=== PATIENT | female | born 1975 | race Caucasian/White ===

== ENCOUNTER 2019-06-14 14:18 | Outpatient (RCR) | payer SELFPAY ==
--- NOTE | 2019-06-14 19:32 | ONC CON_ITS ---
Dr. Villalobos New Patient Note Patient: Carolyne Cole Unit #: [id number]: 1975 Dicatated By: Juan Manuel Villalobos M.D.Date of Visit: Jun 14, 2019 Onc MED New Patient/Consult Referring Physician: Laz Brown Chief Complaint: Left upper extremity deep vein thrombosis. History of Present Illness: This is a 46 year-old woman with an unprovoked deep vein thrombosis of the left arm. She has a known history of sarcoidosis, which currently is an active. On she began having pain and swelling in her left arm. Initially she thought she may have just slept on it wrong. However, the symptoms worsened. She was seen in the emergency room on 05/10/2019. Venous Doppler of the left arm showed deep vein thrombosis in the left brachial veins. All other veins appeared free of thrombus. She started anticoagulation with apixaban, 10 mg twice daily for 7 days followed by 5 mg twice daily. Her symptoms initially improved, but on 05/20/2019 she returned to the emergency room with recurrence of pain in the upper left arm. Repeat venous Doppler showed no evidence for deep vein thrombosis. She was referred here for thrombophilia evaluation. In the meantime, she had contacted us to report multiple side effects with the apixaban including severe nausea and headaches. She reported having a 14 pound weight loss. With that information, her anticoagulation was transitioned to a therapeutic dosage of Lovenox. She is seen now for her scheduled visit. She has been feeling much better since she has been off the apixaban. She still has some limitation in her activity due to the left arm pain, but her energy is better. Her appetite also has improved. She has not had fever or night sweats. She has just occasional hot flashes. She does not complain of shortness of breath or chest pain. Her GI symptoms also have improved. She currently has no complaints. She was treated for urinary tract infection about a month ago. She says she has terrible pain in her knees, but that is chronic. She has had some numbness recently in her left arm. She has no other focal neurologic symptoms. She has no prior history of thromboembolism. She has no history of injury to her left arm. She has not been on hormone replacement therapy, and she is a non-smoker. There is a significant family history of thromboembolism with her father having with pulmonary emboli and a younger sister having had a lower extremity deep vein thrombosis. Past Medical History: Her medical history includes degenerative arthritis, vitamin D deficiency, and sarcoidosis. Past Surgical History: Her surgical/procedural history includes skin cancer excision x 2, cholecystectomy in 2011, right oophorectomy in 2011, appendectomy and left oophorectomy in 2009, partial hysterectomy in 2002, arthroscopic right knee surgery in 1998, and tonsillectomy in 1994. Medications: Lovenox 100 mg (of 300 mg/3mL) Injection b.i.d., Stool Softener 1 Tablet (of 100 mg) Oral PRN, Vitamin D 1 Tablet (of 63751 mcg) Oral q 7 days Allergies: all pain medications Social History: Ms. Cole is . 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 She is a non-smoker. She does not drink alcohol. Family History: Father at age 74 with pulmonary embolism. Mother is still living at age 75. She is being followed for a low-grade neuroendocrine lung tumor. She also has had strokes in association with atrial fibrillation. A sister had a blood clot in her leg in association with a traumatic fracture. Review Of Symptoms: Constitutional - Her energy is getting better. She is doing most activities, but the use of her left arm is somewhat limited, due to the blood clot. Her appetite is good and her weight is down about 14 pounds since being on the Eliquis. No fever, chills or night sweats. She has occasional hot flashes. ECOG score is 1, Eyes - No change in vision, ENMT - No hearing loss or tinnitus. No sinus congestion/drainage. No mouth sores. No sore throat or difficulty swallowing, Hematologic/Lymphatic - She is on anticoagulation for the blood clot. She had bruising in her left arm on Friday, Respiratory - No shortness of breath. No cough. No pleuritic pain or hemoptysis, Cardiovascular - No angina pain. No palpitations, Gastrointestinal - She was having nausea on Eliquis. No heartburn or acid reflux. She uses stool softener to regulate her bowels. No blood in the stool or black stools, Genitourinary (F) - No dysuria or hematuria. No urinary frequency. No urgency or incontinence, Musculoskeletal - She has pain in her left arm. She has chronic pain in her knees, Integumentary - She has had 2 skin cancers excised, and she has 2 remaining lesions, Neurologic - She had headaches while on Eliquis. She had an episode of numbness and tingling in her left arm/hand last week, Psychiatric - No anxiety or depression. She does not sleep well at night. Vital Signs: Performed on Jun 14, 2019 14:54: 4, 39.82 (HIGH), 2.08 sq.m, 64.00 in, 99 %, 76 /min, 18 /min, 125/82 mm(hg), 98.4 F, and 232.0 lbs (HIGH). Physical Examination: Constitutional - She appears to be in good general health, Eyes - Sclerae nonicteric. Conjunctivae clear, ENMT - No lesions noted in the oral cavity, Neck - No mass or thyromegaly, Hematologic/Lymphatic - No cervical, clavicular, or axillary adenopathy, Respiratory - Lungs are clear with good air movement bilaterally, Cardiovascular - Heart rhythm is regular. There is no murmur, gallop, or rub noted, Abdomen - Soft and non-tender. Liver and spleen are not enlarged. There is no abdominal mass or ascites noted and there is no inguinal adenopathy, Back/Spine - No spine or CVA tenderness noted, Extremities - There is mild residual swelling in the upper left arm. There is some tenderness in the upper arm and axillary area. No lower extremity edema. Pedal pulses are palpable bilaterally, Integumentary - No rashes. There is a small, slightly raised skin lesion in the upper chest. There is an additional lesion in the right upper back, Neurologic - No focal neurologic deficits noted. Impression: 1. Patient with unprovoked deep vein thrombosis of the left brachial vein. 2. She has had clinical improvement on anticoagulation with apixaban, but she tolerated it very poorly due to severe nausea and headaches. She currently has on therapeutic Lovenox. 3. She has a significant family history of thromboembolism. Her other medical illnesses include: 4. Sarcoidosis which is currently and active. 5. Degenerative arthritis. 6. She has a history of vitamin D deficiency. 7. She has had 2 skin cancers excised, and she reportedly has 2 additional lesions which have been biopsied and also need to be excised. Plan: With an unprovoked upper extremity deep vein thrombosis, she is at higher risk for associated thrombophilia, and I am going to recommend evaluation for a potential underlying cause. This will include a standard laboratory thrombophilia profile as well as a chest CT to screen for underlying malignancy. She will have further evaluation as indicated. In this situation I will recommend long-term anticoagulation. I will try transitioning her to rivaroxaban 20 mg daily when she uses up her current supply of Lovenox. Signed By: Juan Manuel Villalobos M.D. <<Signature on File>>
== END 2019-07-09 23:59 | disposition home or self-care (01) ==
LOC: ONCMED 14:18
PROVIDERS: Family Provider Registered Nurse; PCP Nurse Practitioner Family; Visit Provider Internal Medicine Medical Oncology
DX: I82.622 Acute embolism and thrombosis of deep veins of left upper extremity (principal); D86.9 Sarcoidosis, unspecified; M17.0 Bilateral primary osteoarthritis of knee; E55.9 Vitamin D deficiency, unspecified; Z79.01 Long term (current) use of anticoagulants; Z85.828 Personal history of other malignant neoplasm of skin; Z87.440 Personal history of urinary (tract) infections
CPT/HCPCS: 99203

== ENCOUNTER 2019-06-15 12:11 | Outpatient (RCR) | payer SELFPAY ==
[2019-06-15 13:15] LABS: Basophils % 0.4 %; Eosinophils # 0.2 10^3/uL (0.0-0.8); Eosinophils % 3.1 %; Hematocrit 39.8 % (37.0-47.0); Hemoglobin 12.7 g/dL (11.5-15.3); Lymphocytes # 3.1 10^3/uL (0.8-4.8); Mean Corpuscular HGB Conc 31.9 g/dL (30.0-36.0); Mean Corpuscular Hemoglobin 28.2 pg (28.0-34.0); Mean Corpuscular Volume 88.4 fL (81-99); Mean Platelet Volume 11.2 fL (7.4-10.4); Monocytes # 0.4 10^3/uL (0.2-0.9); Monocytes % 6.9 %; Neutrophils # 1.7 10^3/uL (1.8-7.7); Neutrophils % 31.6 %; Nucleated Red Blood Cells % 0 %; Platelet Count 237 10^3/cmm (130-400); Red Cell Distribution Width 12.3 % (12.1-15.1); White Blood Count 5.4 10^3/uL (4.0-10.0)
[2019-06-15 13:27] LABS: Alanine Aminotransferase 144 U/L (0-33); Albumin Level 4.7 g/dL (3.5-5.2); Alkaline Phosphatase 84 IU/L (35-105); Anion Gap 14.7 (5-19); Aspartate Amino Transferase 98 U/L (0-32); Blood Urea Nitrogen 9 mg/dL (6-20); Calcium 10.1 mg/Dl (8.6-10.0); Carbon Dioxide 28 mmol/L (22-29); Chloride 99 mmol/L (98-107); Glomerular Filtration Rate 109.1 mL/min (90-130); Glucose 133 mg/dL (74-109); Potassium 3.7 mmol/L (3.5-5.1); Sodium 138 mmol/L (136-145); Total Bilirubin 0.4 mg/dL (0.15-1.2); Total Protein 7.7 g/dL (6.6-8.7)
[2019-06-19 18:02] LABS: Beta 2 Glycoprotein IGA <9 SAU (<=20); Beta 2 Glycoprotein IGG 23 SGU (<=20); Beta 2 Glycoprotein IGM <9 SMU (<=20)
== END 2019-07-09 23:59 | disposition home or self-care (01) ==
LOC: ONCMED 12:11
PROVIDERS: Family Provider Registered Nurse; PCP Nurse Practitioner Family; Visit Provider Internal Medicine Medical Oncology
DX: I82.622 Acute embolism and thrombosis of deep veins of left upper extremity (principal); D86.9 Sarcoidosis, unspecified
CPT/HCPCS: 36415; 80053; 81240; 81241; 85025; 85300; 85303; 85305; 86146; 86147

== ENCOUNTER 2019-06-18 10:18 | Outpatient (CLI) | payer SELFPAY ==
--- NOTE | 2019-06-18 10:28 | CT_ITS ---
WS: [id number] CT scan of the chest with IV contrast, additional two-dimensional coronal and sagittal reconstruction was performed. 06/18/2019 Clinical Data: LEFT ARM DVT Comparison: None. DLP: 928.[address] scans at [facility] use at least one of these dose optimization techniques: automat ed exposure control; mA and/or kV adjustment per patient size (includes targeted exams where dose is matched to clinical indication); or iterative reconstruction. Findings: No nodules, masses or effusions are seen. Minimal atelectasis is seen in the right middle lobe and li ngula. The heart size is normal with no pericardial effusion. The pulmonary arterial system and thora cic aorta demonstrate no abnormalities or dilatations. There is no axillary or significant mediastina l adenopathy. The upper abdomen shows no acute abnormalities. There are clips in the gallbladder fossa from cholecy stectomy. The bones of the thorax show only minimal osteoarthritic changes of mid thoracic vertebral bodies. CT/CT chest w con* [id number] Impression: Negative CT scan of the chest with IV contrast.
[2019-06-18] MEDS: iohexol 300 mg/mL 100 mL Btl IV (11:10)
== END 2019-06-18 10:19 | disposition home or self-care (01) ==
LOC: RAD 10:19
PROVIDERS: Family Provider Nurse Practitioner Family; PCP Nurse Practitioner Family; Visit Provider Internal Medicine Medical Oncology
DX: I82.622 Acute embolism and thrombosis of deep veins of left upper extremity (principal)
CPT/HCPCS: 71260

== ENCOUNTER 2019-08-04 12:20 | Outpatient (RCR) | payer SELFPAY | END 2019-08-07 23:59 | disposition home or self-care (01) | LOC: ONCMED 12:20 | PROVIDERS: Family Provider Nurse Practitioner Family; PCP Nurse Practitioner Family; Visit Provider Internal Medicine Medical Oncology | DX: I82.622 Acute embolism and thrombosis of deep veins of left upper extremity (principal); D86.9 Sarcoidosis, unspecified; M19.90 Unspecified osteoarthritis, unspecified site; E55.9 Vitamin D deficiency, unspecified; Z79.01 Long term (current) use of anticoagulants; Z85.828 Personal history of other malignant neoplasm of skin; Z83.2 Family history of diseases of the blood and blood-forming organs and certain disorders involving the immune mechanism | CPT/HCPCS: G0463 ==

== ENCOUNTER 2019-08-17 10:45 | Outpatient (RCR) | payer SELFPAY ==
--- NOTE | 2019-08-17 10:48 | USCV_ITS ---
Carolyne Cole Age: 44 Gender: F : 1975 Exam Date: 08/17/2019 11:02 Ordering Phys: Juan Manuel Villalobos MD Technologist: Sylvia Teresa Exam Location: [facility] – [place] Indication: swelling, pain HISTORY: Lower extremity pain. PROCEDURES: Venous duplex imaging was performed in bilateral lower extremities. The following venous structures were evaluated: common femoral vein, profunda vein, proximal portion of the greater saphenous vein, superficial femoral vein, and the popliteal vein. In addition, the posterior tibial and peroneal trunk were evaluated. Serial compression, augmentation maneuvers, and spectral Doppler flow evaluation were performed. FINDINGS: Normal 2-D Doppler and augmentation and compressibility throughout the lower extremity venous structures. Additional imaging through the proximal calf veins also reveals no thrombus. Limited evaluation of the greater saphenous vein is patent with no thrombus. CONCLUSIONS No DVT bilateral lower extremities. Dr. Gem Connors DO (Electronically Signed) Final Date: 17 August 2019 12:31 S
== END 2019-09-07 23:59 | disposition home or self-care (01) ==
LOC: ONCMED 10:45
PROVIDERS: Family Provider Nurse Practitioner Family; PCP Nurse Practitioner Family; Visit Provider Internal Medicine Medical Oncology
DX: I82.622 Acute embolism and thrombosis of deep veins of left upper extremity (principal)
CPT/HCPCS: 93970

== ENCOUNTER 2019-08-20 10:57 | Outpatient (CLI) | payer SELFPAY ==
--- NOTE | 2019-08-20 11:04 | XR_ITS ---
WS: [id number] Right foot, 2 views, 08/20/2019 Clinical Data: heel pain Comparison: None. Findings: No fractures or dislocations are seen. No bone destruction or erosion is noted. The joint spaces and soft tissues are normal. There is a plantar spur. XR/XR foot RT 2V [id number] Impression: Negative right foot.
== END 2019-08-20 10:58 | disposition home or self-care (01) ==
LOC: RAD 11:02
PROVIDERS: Family Provider Nurse Practitioner Family; PCP Nurse Practitioner Family; Visit Provider Nurse Practitioner Family
DX: M79.671 Pain in right foot (principal)
CPT/HCPCS: 73620

== ENCOUNTER → 2019-12-29 16:05 | Outpatient (BNVA) | payer SELFPAY | PROVIDERS: Family Provider Nurse Practitioner Family; PCP Nurse Practitioner Family; Visit Provider Registered Nurse | DX: R39.9 Unspecified symptoms and signs involving the genitourinary system (principal) | CPT/HCPCS: 81000 ==

== ENCOUNTER 2020-04-25 13:16 | Outpatient (CLI) | payer SELFPAY ==
--- NOTE | 2020-04-28 07:42 | ONC FU_ITS ---
Dr. Villalobos Patient Follow-Up Note Patient: Carolyne Cole Unit #: [id number]: 1975 Dicatated By: Juan Manuel Villalobos M.D.Date of Visit:Apr 25, 2020 Onc Med Follow-up/Prog Note Chief Complaint: Left upper extremity deep vein thrombosis. History of Present Illness: This is a 45 year-old woman with an unprovoked deep vein thrombosis of the left arm. She has a known history of sarcoidosis, which currently is an active. On she began having pain and swelling in her left arm. Initially she thought she may have just slept on it wrong. However, the symptoms worsened. She was seen in the emergency room on 05/10/2019. Venous Doppler of the left arm showed deep vein thrombosis in the left brachial veins. All other veins appeared free of thrombus. She started anticoagulation with apixaban, 10 mg twice daily for 7 days followed by 5 mg twice daily. Her symptoms initially improved, but on 05/20/2019 she returned to the emergency room with recurrence of pain in the upper left arm. Repeat venous Doppler showed no evidence for deep vein thrombosis. Her anticoagulation was subsequently transitioned to a therapeutic dosage of Lovenox, as she had reported multiple side effects with the apixaban, including severe nausea and headaches. She reported having a 14 pound weight loss. I had initially seen her on 06/14/2019 in regard to a thrombophilia evaluation. She was feeling much better after stopping the apixaban. She still had some limitation in her activity due to the left arm pain, but it was improving. She had no prior history of thromboembolism and no history of injury to her left arm. She had not been on hormone replacement therapy, and she had no history of smoking. She did have a significant family history of thromboembolism with her father having with pulmonary emboli and a younger sister having had a lower extremity deep vein thrombosis. Her subsequent thrombophilia evaluation was remarkable only for a slightly elevated IgG antiglycoprotein I antibody. The anticardiolipin antibody profile was negative. Her protein C and S levels were normal. The factor V Leiden and the prothrombin gene mutations were not detected. An antithrombin III level was requested, but I do not see that the result was reported. Following that visit, I had arranged to transition her anticoagulation from Lovenox to rivaroxaban. She is seen for a follow-up visit. She has continued her anticoagulation with rivaroxaban 20 mg daily. She has had no particular side effects with it, but she does report that over the past 2 to 3 months she has had 4 significant episodes of epistaxis and some minor episodes as well. The first significant episode occurred in February. The most recent was 2-1/2 weeks ago. These have all been from the right side, and they have lasted up to an hour or more. She does recall having had lots of nosebleeds when she was growing up. She does not have abnormal bruising or other bleeding manifestations. Her energy has been good and she has normal activity. Appetite also is good. She has not had fever. She has normal hot flashes. She has no shortness of breath, cough, or chest pain. She has no GI or complaints other than she does tend to have frequent urinary tract infections. She has typical joint pain. She says her knees are shot, and she also has back pain. She does not complain of headache or dizziness, and she has no focal neurologic symptoms. Medications: Rivaroxaban 1 Tablet (of 20 mg) Oral daily, Vitamin D 1 Tablet (of 48801 mcg) Oral q 7 days Allergies: all pain medications Review of Systems: Constitutional - Her energy is fine. She has normal activity. Appetite is good and weight is stable. No fever or night sweats. She has normal hot flashes. ECOG score is 0, ENMT - No sinus congestion/drainage. No mouth sores. No sore throat or difficulty swallowing, Hematologic/Lymphatic - She has had several episodes of significant epistaxis. She has otherwise had no abnormal bruising or bleeding. She had no bleeding with dental work yesterday, Respiratory - No shortness of breath. No cough. No pleuritic pain or hemoptysis, Cardiovascular - No angina pain. No palpitations, Gastrointestinal - No nausea or vomiting. No heartburn or acid reflux. No diarrhea or constipation. No blood in the stool or black stools, Genitourinary (F) - She has had frequent UTI's. No dysuria or hematuria. No urinary frequency. No urgency or incontinence, Musculoskeletal - She has her typical pain, mainly back and knees, Integumentary - No skin rash, Neurologic - No headache or dizziness. No numbness or tingling. No other focal neurologic symptoms, Psychiatric - No anxiety or depression. She has some difficulty sleeping. Vital Signs: Performed on Apr 25, 2020 13:00 Height - 64.00 in Weight - 221 lbs (LOW) BSA - 2.04 sq.m BMI - 37.93 (HIGH) Temperature - 97.4 F (LOW) Pulse - 85 /min Respiration - 17 /min BP - 132/84 mm(hg) O2 Sat - 97 % Pain - 0 Physical Examination: Constitutional - She looks good generally, Eyes - Sclerae nonicteric. Conjunctivae clear, ENMT - No lesions noted in the oral cavity, Hematologic/Lymphatic - No cervical, clavicular, or axillary adenopathy, Respiratory - Lungs are clear with good air movement bilaterally, Cardiovascular - Heart rhythm is regular. There is no murmur, gallop, or rub noted, Abdomen - Soft. Liver and spleen are not enlarged. There is no abdominal mass or ascites noted and there is no inguinal adenopathy, Extremities - No edema, Neurologic - No focal neurologic deficits noted. Impression: 1. Patient with unprovoked deep vein thrombosis of the left brachial vein. 2. She had clinical improvement on anticoagulation with apixaban, but she tolerated it very poorly due to severe nausea and headaches. 3. She has a significant family history of thromboembolism. Her other medical illnesses include: 4. Sarcoidosis which is currently and active. 5. Degenerative arthritis. 6. She has a history of vitamin D deficiency. 7. She has had 2 skin cancers excised, and she reportedly has 2 additional lesions which have been biopsied and also need to be excised. She had gradual improvement in her left arm symptoms on anticoagulation. As above July 2019 she had transition from Lovenox to rivaroxaban 20 mg daily. Overall, she has been doing well with the rivaroxaban, though during the past 2 to 3 months she has been having episodes of epistaxis, all from the right side. I suspect this is a local vascular issue rather than a bleeding issue. Plan: For now she will continue rivaroxaban at 20 mg daily. I will arrange for ENT evaluation for the epistaxis. Ultimately, I may opt to transition her rivaroxaban to a maintenance dosage. Signed By: Juan Manuel Vlilalobos M.D. <<Signature on File>>
== END 2020-04-25 13:17 | disposition home or self-care (01) ==
LOC: ONCMED 13:16
PROVIDERS: Family Provider Nurse Practitioner Family; PCP Nurse Practitioner Family; Visit Provider Internal Medicine Medical Oncology
DX: I82.622 Acute embolism and thrombosis of deep veins of left upper extremity (principal); Z79.01 Long term (current) use of anticoagulants; R04.0 Epistaxis; D86.9 Sarcoidosis, unspecified; M19.90 Unspecified osteoarthritis, unspecified site; E55.9 Vitamin D deficiency, unspecified; Z85.828 Personal history of other malignant neoplasm of skin
CPT/HCPCS: 99214

== ENCOUNTER → 2021-01-03 10:12 | Outpatient (BNVA) | payer OTHER, SELFPAY | PROVIDERS: Family Provider Nurse Practitioner Family; PCP Nurse Practitioner Family; Visit Provider Registered Nurse | DX: L82.1 Other seborrheic keratosis (principal) | CPT/HCPCS: 88305 ==

== ENCOUNTER → 2021-03-26 16:13 | Outpatient (BNVA) | payer OTHER, SELFPAY | PROVIDERS: Family Provider Nurse Practitioner Family; PCP Nurse Practitioner Family; Visit Provider Nurse Practitioner Family | DX: R39.9 Unspecified symptoms and signs involving the genitourinary system (principal) | CPT/HCPCS: 81000 ==

== ENCOUNTER → 2021-10-08 09:02 | Outpatient (BNVA) | payer OTHER, SELFPAY | PROVIDERS: Family Provider Nurse Practitioner Family; PCP Nurse Practitioner Family; Visit Provider Registered Nurse | DX: R73.03 Prediabetes (principal); J45.909 Unspecified asthma, uncomplicated; R06.02 Shortness of breath | CPT/HCPCS: 80053; 83036 ==

== ENCOUNTER 2021-12-05 14:19 | Outpatient (CLI) | payer OTHER, SELFPAY ==
--- NOTE | 2021-12-05 14:35 | MM_ITS ---
WS: [id number] BILATERAL 3D TOMOSYNTHESIS DIGITAL SCREENING MAMMOGRAPHY WITH CAD CLINICAL INFORMATION: SCREENING HISTORY: Screening mammogram. No current complaints. COMPARISON: TECHNIQUE: Bilateral CC and MLO views. FINDINGS: Scattered fibroglandular densities bilaterally. Incidental punctate calcifications. No suspicious foc al mass, asymmetry, calcifications, or architectural distortion. No evidence of malignancy. MM/[place] [id number] IMPRESSION: BI-RADS: 2-Benign FOLLOW UP: 1 Year Follow-up Recommend return to annual screening mammography.
== END 2021-12-05 14:20 | disposition home or self-care (01) ==
LOC: RAD 14:20
PROVIDERS: PCP Nurse Practitioner Family; Visit Provider Nurse Practitioner Family
DX: Z12.31 Encounter for screening mammogram for malignant neoplasm of breast (principal)
CPT/HCPCS: 77063; 77067

== ENCOUNTER 2022-01-18 06:29 | Outpatient (CLI) | payer OTHER, SELFPAY ==
--- NOTE | 2022-01-18 | ECG_ITS ---
[facility] Test Date: 2022-01-18 Pat Name: Carolyne Cole Department: Room: Gender: Female Telehealth Nurse: : 1975 Requested By: Jose Alejandro Vogel Order Number: [id number] MD: Lorraine Thomas M.D. Interpretive Statements NAME OF STUDY: TREADMILL STRESS TEST INDICATION: Dyspnea on exertion Baseline blood pressure of 128/102 mm Hg, heart rate of 84 beats per minute and oxygen saturation of 95%. EKG showed normal sinus rhythm, normal axis nonspecific T wave inversion in lead III. The patient exercised for 7 minutes 46 seconds on a standard Jeferson protocol. Patient attained a maximum heart rate of 173 beats per minute(98% of the maximum predicted heart rate) with a blood pressure at the peak exercise of 169/63 mm Hg and oxygen saturation 94%. The EKG at the peak exercise revealed sinus tachycardia with 1/2 to 1 mm horizontal to upsloping ST depression in inferolateral leads. Patient did not have any chest pain or any significant arrhythmis with the exercise. The study was terminated due to maximal effort. During the recovery phase, there there was T wave inversion in lead III, aVF and V6. Blood pressure at the end of the recovery phase was 129/88 mm Hg with a heart rate of 103 beats per minute and oxygen saturation 96%. CONCLUSION: 1. Equivocal EKG response to treadmill exercise. 1/2 to 1 mm horizontal to upsloping ST depression in inferolateral leads. 2. No exercise-induced chest pain or cardiac arrhythmia 3. Good exercise tolerance, attained a maximum of 10.2 METs. Maximum VO2 of 35.7 mL/kg/min. 4. Baseline hypertension with normal response to exercise. Electronically Signed On 01-24-2022 12:39:11 CDT by Lorraine Thomas M.D. [email or web address]
[2022-01-18 06:37] VITALS: BMI 37.9
[2022-01-18 07:09] VITALS: BP 129/88; PULSE 100
== END 2022-01-18 06:30 | disposition home or self-care (01) ==
LOC: CDL 06:30
PROVIDERS: PCP Registered Nurse; Visit Provider Registered Nurse
DX: R06.09 Other forms of dyspnea (principal)
CPT/HCPCS: 93017

== ENCOUNTER → 2022-02-06 16:29 | Outpatient (BNVA) | payer OTHER, SELFPAY | PROVIDERS: PCP Registered Nurse; Visit Provider Internal Medicine Critical Care Medicine | DX: R06.09 Other forms of dyspnea (principal); Z86.2 Personal history of diseases of the blood and blood-forming organs and certain disorders involving the immune mechanism; G47.10 Hypersomnia, unspecified | CPT/HCPCS: 36415; 82164; 82306; 82310; 82652; 83970 ==

== ENCOUNTER → 2022-07-22 11:11 | Outpatient (BNVA) | payer OTHER, SELFPAY | PROVIDERS: PCP Registered Nurse; Visit Provider Registered Nurse | DX: N39.0 Urinary tract infection, site not specified (principal) | CPT/HCPCS: 81000; 87077; 87086; 87184 ==

== ENCOUNTER → 2022-08-05 13:19 | Outpatient (BNVA) | payer OTHER, SELFPAY | PROVIDERS: PCP Registered Nurse; Visit Provider Registered Nurse | DX: N39.0 Urinary tract infection, site not specified (principal) | CPT/HCPCS: 87086 ==

== ENCOUNTER → 2022-09-20 09:42 | Outpatient (BNVA) | payer OTHER, SELFPAY | PROVIDERS: PCP Registered Nurse; Visit Provider Registered Nurse | DX: Z12.83 Encounter for screening for malignant neoplasm of skin (principal) | CPT/HCPCS: 88304 ==

== ENCOUNTER → 2022-12-12 14:56 | Outpatient (BNVA) | payer OTHER, SELFPAY | PROVIDERS: PCP Registered Nurse; Visit Provider Registered Nurse | DX: N39.0 Urinary tract infection, site not specified (principal) | CPT/HCPCS: 81000 ==

== ENCOUNTER → 2022-12-19 10:32 | Outpatient (BNVA) | payer SELFPAY | PROVIDERS: PCP Registered Nurse; Visit Provider Registered Nurse | DX: N39.0 Urinary tract infection, site not specified (principal) | CPT/HCPCS: 81000 ==

== ENCOUNTER → 2023-12-01 09:38 | Outpatient (BNVA) | payer SELFPAY | PROVIDERS: PCP Registered Nurse; Visit Provider Nurse Practitioner Family | DX: N39.0 Urinary tract infection, site not specified (principal) | CPT/HCPCS: 81000; 87086 ==

== ENCOUNTER → 2024-04-09 10:21 | Outpatient (BNVA) | payer SELFPAY | PROVIDERS: PCP Registered Nurse; Visit Provider Registered Nurse | DX: L98.9 Disorder of the skin and subcutaneous tissue, unspecified (principal) | CPT/HCPCS: 88305 ==

== ENCOUNTER → 2025-01-07 08:01 | Outpatient (BNVA) | payer OTHER, SELFPAY | PROVIDERS: PCP Registered Nurse; Visit Provider Registered Nurse | DX: N89.8 Other specified noninflammatory disorders of vagina (principal) | CPT/HCPCS: 81000; 87070; 87205 ==